=== PATIENT | male | born 1955 | race African-American/Black ===

== ENCOUNTER 2016-08-15 13:45 | Emergency (ER) | payer OTHER ==
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
== END 2016-08-15 15:57 | disposition home or self-care (01) ==
LOC: CED 13:45
DX: S06.0X9A Concussion with loss of consciousness of unspecified duration, initial encounter (principal); S13.4XXA Sprain of ligaments of cervical spine, initial encounter; S33.5XXA Sprain of ligaments of lumbar spine, initial encounter; E11.9 Type 2 diabetes mellitus without complications; I10 Essential (primary) hypertension; T14.8 Other injury of unspecified body region; V59.40XA Driver of pick-up truck or van injured in collision with unspecified motor vehicles in traffic accident, initial encounter; Y92.410 Unspecified street and highway as the place of occurrence of the external cause
CPT/HCPCS: 70450; 71010; 72100; 72125; 73030; 73502; 99284